=== PATIENT | female | born 1950 | race Caucasian/White ===

== ENCOUNTER 2022-04-21 07:45 | Day surgery (SDC) | payer OTHER, BC ==
[2022-04-19 11:46] VITALS: BMI 27.6
[2022-04-21] MEDS ORDERED: PROPOFOL 120 ML ONE (07:51)
[2022-04-21 09:18] VITALS: TEMP 97.8
[2022-04-21 09:20] VITALS: BP 88/66; PULSE 57; RESP 19
== END 2022-04-21 09:40 | disposition home or self-care (01) ==
LOC: FASU-ENDO 07:45
PROVIDERS: ATTEND Internal Medicine Gastroenterology
PROC: 0DJD8ZZ Inspection of Lower Intestinal Tract, Via Natural or Artificial Opening Endoscopic (ICD-10-PCS; principal; 2022-04-21 08:27)
DX: Z12.11 Encounter for screening for malignant neoplasm of colon (principal); K57.30 Diverticulosis of large intestine without perforation or abscess without bleeding